=== PATIENT | male | born 1950 | race Caucasian/White ===

== ENCOUNTER → 2017-02-28 | Outpatient (CLI) | payer MEDICARE ==
--- NOTE | 2017-02-28 14:04 | REP ---
Right lower extremity Duplex Doppler venous ultrasound: Real time compression and duplex Doppler interrogation of the right lower extremity deep venous system is performed. The right common femoral, superficial femoral and popliteal veins are fully compressible with transducer pressure and demonstrate normal spontaneous and phasic flow, without evidence of deep venous thrombosis. Impression: No evidence of deep venous thrombosis of the right lower extremity femoral popliteal venous system. There is no definite muscle tear or hematoma in the calf. Signed by Hector Escalante MD 02/28/2017 01:56 P
== END ==
LOC: M RAD 13:08
PROVIDERS: ATTEND Surgery
DX: M79.604 Pain in right leg (principal)

== ENCOUNTER 2019-02-19 15:30 | Emergency (ER) | payer MEDICARE ==
[~2019-02-19] VITALS: Ht 180.3 cm; Wt 99.6 kg
[2019-02-19] MEDS ORDERED: NS 1,000 ML IV SCH (15:49)
[2019-02-19] MEDS ORDERED: NITROGLYCERIN 0.4 MG SUBL TABLET As Ordered ONE (15:50)
[2019-02-19] MEDS ORDERED: NITROGLYCERIN 0.4 MG SUBL TABLET SL PRN (16:00)
[2019-02-19] MEDS ORDERED: ECOT81TA5 PO (16:13)
[2019-02-19] MEDS ORDERED: LISI10TA4 PO (16:13)
[2019-02-19] MEDS ORDERED: OMEP-218 PO (16:13)
[2019-02-19] MEDS ORDERED: MELO7.5T35 PO (16:13)
[2019-02-19] MEDS ORDERED: SITA50TAB PO (16:13)
[2019-02-19] MEDS ORDERED: PRAV10TA3 PO (16:13)
[2019-02-19 16:15] LABS: BASO # 0.2 10^3/uL (0.0-0.2); BASO % 1.2 % (0.0-1.0); EOS # 0.4 10^3/uL (0.0-0.50); EOS % 3.6 % (0.0-3.0); HEMATOCRIT 48.7 % (42.0-52.0); HEMOGLOBIN 16.5 g/dl (13.5-17.5); LYMPH # 2.6 10^3/uL (1.5-4.5); LYMPH % 21.2 % (24.0-44.0); MEAN CORPUSCULAR HEMOGLOBIN 30.2 pg (27.0-33.0); MEAN CORPUSCULAR HGB CONC 33.9 g/dl (32.0-36.5); MEAN CORPUSCULAR VOLUME 89.2 fl (80.0-96.0); MONO % 8.1 % (0.0-5.0); NEUTROPHILS # 7.8 10^3/uL (1.8-7.7); PLATELET COUNT, AUTOMATED 294 10^3/uL (150-450); RED BLOOD COUNT 5.46 10^6/uL (4.30-6.10)
--- NOTE | 2019-02-19 16:17 | REP ---
Chest one-view HISTORY: Chest pain Comparison: 10/25/2010 Patchy density is present in the left lower lobe consistent with atelectasis or infiltrate. The right lung is clear The heart is normal in size. The pulmonary vasculature is normal in appearance. Impression: Left lower lobe atelectasis or infiltrate. Electronically Signed by Navneet Perez MD 02/19/2019 04:09 P
[2019-02-19 16:26] LABS: INR 0.95; PROTHROMBIN TIME 12.8 SECONDS (12.1-14.4)
[2019-02-19 16:27] LABS: PARTIAL THROMBOPLASTIN TIME 29.1 SECONDS (25.4-37.6)
[2019-02-19] MEDS ORDERED: CLOPIDOGREL 300 MG TAB (PLAVIX) PO ONE (16:30)
[2019-02-19 16:36] LABS: ALBUMIN 3.9 GM/DL (3.2-5.2); ALT/SGPT 53 U/L (12-78); BILIRUBIN,DIRECT < 0.1 MG/DL (0.0-0.2); BILIRUBIN,TOTAL 0.4 MG/DL (0.2-1.0); BLOOD UREA NITROGEN 15 MG/DL (7-18); CALCIUM LEVEL 9.2 MG/DL (8.8-10.2); CARBON DIOXIDE LEVEL 26 MEQ/L (21-32); CHLORIDE LEVEL 107 MEQ/L (98-107); CPK CREATINE PHOSPHOKINASE 89 U/L (39-308); CREATININE FOR GFR 0.78 MG/DL (0.70-1.30); FREE T4 1.12 NG/DL (0.76-1.46); GLOMERULAR FILTRATION RATE > 60.0 (>49); GLUCOSE, FASTING 119 MG/DL (70-100); LIPASE 164 U/L (73-393); MB/CK RELATIVE INDEX 1.24 (< OR =4); POTASSIUM SERUM 4.1 MEQ/L (3.5-5.1); SODIUM LEVEL 139 MEQ/L (136-145); TOTAL PROTEIN 7.4 GM/DL (6.4-8.2); TROPONIN I < 0.02 NG/ML (< 0.10)
[2019-02-19 17:15] VITALS: BP 134/74
--- NOTE | 2019-02-20 01:39 | ECGEPIP ---
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
== END 2019-02-19 17:22 | disposition short-term general hospital (02) ==
LOC: M ED 15:30
DX: I25.110 Atherosclerotic heart disease of native coronary artery with unstable angina pectoris (principal); I11.9 Hypertensive heart disease without heart failure; E11.9 Type 2 diabetes mellitus without complications; E78.5 Hyperlipidemia, unspecified; Z95.5 Presence of coronary angioplasty implant and graft; Z79.899 Other long term (current) drug therapy; Z79.82 Long term (current) use of aspirin; Z79.84 Long term (current) use of oral hypoglycemic drugs

== ENCOUNTER 2019-06-13 19:20 | Inpatient (IN) | payer MEDICARE ==
[~2019-06-13] VITALS: Ht 180.3 cm; Wt 95.6 kg
[~2019-06-13 19:20] MED LIST: ECOT81TA5 PO; LISI10TA4 PO; MELO7.5T35 PO; OMEP-218 PO; PRAV10TA3 PO; SITA50TAB PO
[2019-06-13] MEDS ORDERED: CLOP75TA2 PO (19:35)
[2019-06-13 20:25] LABS: BASO # 0.1 10^3/uL (0.0-0.2); EOS # 0.3 10^3/uL (0.0-0.50); EOS % 2.9 % (0.0-3.0); HEMATOCRIT 46.1 % (42.0-52.0); HEMOGLOBIN 15.3 g/dl (13.5-17.5); LYMPH # 1.9 10^3/uL (1.5-4.5); LYMPH % 16.2 % (24.0-44.0); MEAN CORPUSCULAR HEMOGLOBIN 29.9 pg (27.0-33.0); MEAN CORPUSCULAR HGB CONC 33.2 g/dl (32.0-36.5); MONO # 0.8 10^3/uL (0.0-0.8); MONO % 6.5 % (0.0-5.0); NEUTROPHILS # 8.5 10^3/uL (1.8-7.7); NEUTROPHILS % 72.7 % (36.0-66.0); PLATELET COUNT, AUTOMATED 271 10^3/uL (150-450); RED BLOOD COUNT 5.12 10^6/uL (4.30-6.10); WHITE BLOOD COUNT 11.8 10^3/uL (4.0-10.0)
[2019-06-13] MEDS ORDERED: NS 500 ML IV ONE (20:30)
[2019-06-13 20:48] LABS: INR 1.04; PROTHROMBIN TIME 13.3 SECONDS (11.8-14.0)
[2019-06-13 20:51] LABS: ALBUMIN 3.3 GM/DL (3.2-5.2); ALT/SGPT 55 U/L (12-78); BILIRUBIN,DIRECT 0.1 MG/DL (0.0-0.2); BILIRUBIN,TOTAL 0.3 MG/DL (0.2-1.0); BLOOD UREA NITROGEN 14 MG/DL (7-18); CALCIUM LEVEL 8.9 MG/DL (8.8-10.2); CARBON DIOXIDE LEVEL 28 MEQ/L (21-32); CHLORIDE LEVEL 104 MEQ/L (98-107); CK-MB VALUE MASS < 1.0 NG/ML (<3.6); CPK CREATINE PHOSPHOKINASE 62 U/L (39-308); CREATININE FOR GFR 0.89 MG/DL (0.70-1.30); GLOMERULAR FILTRATION RATE > 60.0 (>49); GLUCOSE, FASTING 254 MG/DL (70-100); MB/CK RELATIVE INDEX 1.61 (< OR =4); POTASSIUM SERUM 4.3 MEQ/L (3.5-5.1); SODIUM LEVEL 137 MEQ/L (136-145); TOTAL PROTEIN 6.9 GM/DL (6.4-8.2); TROPONIN I < 0.02 NG/ML (< 0.10)
[2019-06-13] MEDS ORDERED: PRAVASTATIN 20 MG TAB PO SCH (21:00)
[2019-06-13] MEDS ORDERED: ISOVUE-370 76% 100ML VIAL (Q9967) As Ordered ONE (21:23)
--- NOTE | 2019-06-13 21:43 | REPVR ---
EXAM: CT Head Without Contrast EXAM DATE/TIME: 06/13/2019 8:54 PM CLINICAL HISTORY: 69 years old, male; Syncope and collapse; Additional info: Near-syncope TECHNIQUE: Imaging protocol: Computed tomography images of the head without contrast. Radiation optimization: All CT scans at this facility use at least one of these dose optimization techniques: automated exposure control; mA and/or kV adjustment per patient size (includes targeted exams where dose is matched to clinical indication); or iterative reconstruction. COMPARISON: No relevant prior studies available. FINDINGS: Brain: The white-rocha differentiation is preserved demonstrating no acute territorial type infarct. Mild increased fluid is identified in the left cerebellar convexity. Artifact limits evaluation of the cassius. There is mild prominence of the sulci, compatible with atrophy. No acute intracranial hemorrhage is seen. No intracranial mass effect. Midline shift: There is no midline shift. Ventricles: No ventriculomegaly. Bones/joints: The calvarium demonstrates no evidence for a depressed fracture. Sinuses: Mild mucosal thickening of a few ethmoid air cells. Mastoid air cells: No mastoid effusion. Soft tissues: Unremarkable. Vasculature: Intracranial atherosclerosis visualized. IMPRESSION: 1. No acute intracranial hemorrhage or acute territorial type infarct. 2. Mild atrophy. 3. Additional findings described above. Electronically signed by: Adria Palmer On 06/13/2019 21:42:55 PM
--- NOTE | 2019-06-13 21:44 | REP ---
Portable chest x-ray: Two views. History: Near-syncope. Comparison study February 19, 2019. Findings: Right hemidiaphragm is somewhat elevated. There is coarse bilateral lower lobe linear scarring. This is essentially unchanged from the January 2019 study. No infiltrate is seen. Pleural angles are sharp. Heart is not enlarged. There are clips in the right upper quadrant. Impression: Bilateral lower lobe linear fibrosis. Otherwise no acute disease. Electronically Signed by Sami Mckoy MD 06/14/2019 10:40 A
--- NOTE | 2019-06-13 22:30 | REPVR ---
EXAM: CT Angiography Chest With Contrast EXAM DATE/TIME: 06/13/2019 9:42 PM CLINICAL HISTORY: 69 years old, male; Chest pain; Additional info: Bradycardic/hypotensive R/O taa, pericardial effusion TECHNIQUE: Imaging protocol: Axial computed tomographic angiography images of the chest with intravenous contrast using CT angiography protocol. Coronal and sagittal reformatted images were created and reviewed. 3D rendering: MIP reconstructed images were created and reviewed. Radiation optimization: All CT scans at this facility use at least one of these dose optimization techniques: automated exposure control; mA and/or kV adjustment per patient size (includes targeted exams where dose is matched to clinical indication); or iterative reconstruction. Contrast material: ISOVUE 370;Contrast volume: 75 ml;Contrast route: IV; COMPARISON: CR Chest, 1 view 06/13/2019 8:20 PM FINDINGS: Pulmonary arteries: The main pulmonary trunk, right/left main pulmonary arteries, and the proximal lobar branches demonstrate no definite intraluminal filling defect to suggest pulmonary embolism. Aorta: Mild atherosclerosis of the thoracic aorta. No aneurysm or dissection of the thoracic aorta. Thyroid: There is a 1.6 cm hypodense nodule within the left thyroid lobe. Lungs: Mild paraseptal emphysematous changes are identified in the right upper lobe of the lung. A band of consolidation is visualized within the right lower lobe, likely representing atelectatic change although pneumonia cannot be excluded. Additional atelectatic changes are identified within the left lower lobe, lingula, and right middle lobe. Nonspecific ground-glass density within the dependent lower lobes bilaterally, as well as the left upper lobe. No lung mass or dominant lung nodule. Pleural space: No pneumothorax. No pleural effusion. Heart: Small amount of fluid in the superior pericardial recess. No cardiomegaly. Mediastinum: Small hiatal hernia. Diaphragm: Elevation of the right hemidiaphragm. Liver: There is hypodense fatty infiltration of the liver. Gallbladder and bile ducts: Surgical clips are identified within the gallbladder fossa, compatible with cholecystectomy. Adrenals: There is nodular thickening of the bilateral adrenal glands. This is nonspecific. Lymph nodes: There is a mildly enlarged right hilar lymph node measuring 1.4 x 0.9 cm. Additional small hilar lymph nodes are identified bilaterally. No significant mediastinal lymphadenopathy. Nonspecific axillary lymph nodes are identified with prominent fatty yanira. Bones/joints: Hypertrophic degenerative changes are noted within the spine. There is mild anterior wedging of the T6 and T7 vertebral bodies, with a mild decrease in vertebral height of T9. These findings are consistent with compression deformities/fractures, but indeterminate in acuity. Soft tissues: Unremarkable. IMPRESSION: 1. No aneurysm or dissection of the thoracic aorta. 2. No acute pulmonary embolism. 3. Elevation of the right hemidiaphragm. 4. Mild paraseptal emphysematous changes are identified in the right upper lobe of the lung. 5. A band of consolidation is visualized within the right lower lobe, likely representing atelectatic change although pneumonia cannot be excluded. Additional atelectatic changes are identified. 6. There is a mildly enlarged right hilar lymph node. 7. There is a 1.6 cm hypodense nodule within the left thyroid lobe. Follow-up ultrasonography recommended. 8. There is nodular thickening of the bilateral adrenal glands. This is nonspecific. 9. There is hypodense fatty infiltration of the liver. 10. There is mild anterior wedging of the T6 and T7 vertebral bodies, with a mild decrease in vertebral height of T9. These findings are consistent with compression deformities/fractures, but indeterminate in acuity. Clinical correlation and correlation with prior studies recommended. 11. Additional findings described above. COMMENT: In patients aged 35 years and older with an incidental thyroid nodule equal to or greater than 1.[address], MRI or extrathyroidal US, further evaluation with dedicated thyroid US is recommended for patients with normal life expectancy and without comorbidities. For smaller nodules without suspicious features, no further evaluation or follow up is recommended. Electronically signed by: Adria Palmer On 06/13/2019 22:30:05 PM
--- NOTE | 2019-06-13 23:13 | HPEPDOC ---
[facility] Medical History & Physical Date of Admission Jun 13, 2019 Date of Service: Jun 13, 2019 Primary Care Physician: A Other Provider PCP Mariah Patel Attending Physician: RADHA JUNG MD History and Physical Time of service 11:50 PM CHIEF COMPLAINT: Weakness HISTORY OF PRESENT ILLNESS: Mr. Mae is a 69-year-old male who presented with complaints of "feeling tired for 2 days Like I was drunk Dizzy Couldn't focus". Today, while he was sitting on the porch eating lunch, he spontaneously fell asleep. He decided to go inside and have a nap, but when he woke up he was having palpitations therefore he decided to come to the hospital. Associated symptoms include dry cough, upper patient's, headaches, dyspnea with exertion, and dyspnea at rest. He denies falling, denies having chest pain, denies having leg swelling, denies having dyspnea while lying down flat. REVIEW OF SYSTEMS: 12 point review of systems negative except as listed in HPI PAST MEDICAL / SURGICAL HISTORY: 1. Wpf-hdbvycr-sbvkgealq DM 2. Chronic CAD s/p stents X3 / Dyslipidemia 3. Chronic HTN 5. Depression 6. Right hip OAs/p hip surgery 7. GERD / Flores's 8. Possible history of prostate cancer (status post prostatectomy, the pathology results were negative, but he was recently told that he had a reoccurrence. He is scheduled follow up with a specialist in [facility]) 11. Hearing loss (has bilateral hearing aids) 9. s/p rotator cuff surgery SOCIAL HISTORY: Denies smoking. Denies alcohol use. Denies illicit drug use FAMILY HISTORY: Father had Kdfkt-Ycgjbjzip-Kfsmt syndrome. Osteoarthritis ALLERGIES: Please see below. HOME MEDICATIONS: Please see below. PHYSICAL EXAMINATION: VITAL SIGNS: Temperature 97.8, pulse 39-64, respiratory rate 16, blood pressure 118/61, pulse oximetry 94% on room air GENERAL APPEARANCE: Well-nourished, well-developed, does not appear in apparent distress, doesn't appear toxic. INTEGUMENT: Doesn't appear ashen, does not appear flushed HEENT: Cephalic, atraumatic, mucous murmurs moist and pink CARDIOVASCULAR: Heart rate regularly irregular and bradycardic. No murmurs, rubs or gallops. Radial pulses are palpable. There is no lotion edema LUNGS: Clear to addition bilaterally on room air ABDOMEN: Bowel sounds are hypoactive. The abdomen is soft and nontender on palpation MUSCULOSKELETAL: Range of motion is intact in all 4 extremities NEUROLOGICAL: Cranial nerves II-12 are grossly intact. Speech is not dysarthric PSYCHIATRIC: Alert and oriented, able to understand and follow commands LABORATORY DATA: CBC is remarkable for WBC count 11.8 Coags are unremarkable Chemistry is remarkable for glucose of 254 IMAGING: Chest x-rays are unremarkable CT of the head is unremarkable for any acute process, but show some atrophy. CTA of the chest is negative for dissection, negative for PE, but does show emphysematous changes of the right upper lobe, consolidation at the right lower lobe that may be developed atelectasis or pneumonia, and a left thyroid nodule. MICROBIOLOGY: Please see below. Mr. Marks is a 63-year-old male with a past medical history of hypertension, hnx-uferekb-xaccfwiuv diabetes, chronic CAD, osteoarthritis, GERD, and depression who will be admitted primarily for evaluation of bradycardia. ASSESSMENT: PLAN: 1. Symptomatic Bradycardia Differential includes 2/2 plavix versus ACS versus infection TSH and K wnl CTA neg for PE Plan: admit to ICU / pacers at bedside/ atropine PRN for HR sustained <30 for 2 min w AMS / f/u Mag / trend troponins / f/u serial EKGs / f/u Echo / hold plavix pending cardiology consult with 2. Leucocytosis Plan: f/u UA, blood cx and lactic acid / emperic levofloxacin 3. Thyroid Nodule TSH within normal limits Plan: f/u US the thyroid 4.Umt-rbbzdqw-bvjryohib diabetes mellitus Plan: Hold oral anti-glycemic agents/f/u accuchecks & A1C / SSI w hypoglycemia protocol 5. Chronic CAD s/p stents X3 / Dyslipidemia Plan: Continue with home meds except Plavix 6. Chronic HTN Plan: Continue with home meds 7. Depression Plan: Continue with home meds 8. Right hip OAs/p hip surgery Plan: Continue with home meds 9. 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 Disposition pending clinical course Laboratory Data CBC/BMP Laboratory Tests 06/13/19 20:07 Red Blood Count 5.12, Mean Corpuscular Volume 90.0, Mean Corpuscular Hemoglobin 29.9, Mean Corpuscular Hemoglobin Concent 33.2, Red Cell Distribution Width 12.6, Neutrophils (%) (Auto) 72.7 H, Lymphocytes (%) (Auto) 16.2 L, Monocytes (%) (Auto) 6.5 H, Eosinophils (%) (Auto) 2.9, Basophils (%) (Auto) 1.0, Neut rophils # (Auto) 8.5 H, Lymphocytes # (Auto) 1.9, Monocytes # (Auto) 0.8, Eosinophils # (Auto) 0.3, Basophils # (Auto) 0.1 Home Medications Scheduled Aspirin (Aspirin EC) 81 Mg Tablet.dr, 81 MG PO DAILY Clopidogrel Bisulfate (Plavix) 75 Mg Tablet, 75 MG PO DAILY Lisinopril (Lisinopril) 10 Mg Tablet, 10 MG PO DAILY Omeprazole (Omeprazole) 20 Mg Capsule.dr, 20 MG PO Q2D Pravastatin Sodium (Pravastatin Sodium) 40 Mg Tablet, 40 MG PO QHS Sitagliptin (Januvia) 50 Mg Tablet, 50 MG PO QHS Scheduled PRN Acetaminophen (Tylenol Arthritis) 650 Mg Tablet.er, 650 MG PO Q8H PRN for PAIN Acetaminophen with Codeine (Tylenol with Codeine #3 Tablet) 1 Each Tablet, 1 TAB PO Q4-6HP PRN for severe arthritis pain Diclofenac Sodium (Voltaren) 100 Gm Gel..gram., 1 DOSE TOP Q8H PRN for PAIN USES ON RIGHT SHOULDER Meloxicam (Mobic) 7.5 Mg Tablet, 7.5 MG PO BID PRN for PAIN WITH FOOD Nitroglycerin (Nitrostat) 0.4 Mg Tab.subl, 0.4 MG SL NITRO PRN for CHEST PAIN Nystatin (Nystatin Powder) 15 Gm Powder, 1 DOSE TOP BID PRN for ITCHING ON RIGHT FOOT FOR ATHLETE'S FOOT Allergies Coded Allergies: No Known Allergies (Verified Allergy, Unknown, 02/19/19) A-FIB/CHADSVASC A-FIB History Current/History of A-Fib/PAF?: No Current PO Anticoag Therapy: No RADHA JUNG MD Jun 13, 2019 23:13
[2019-06-13] MEDS ORDERED: VOLT1GEL15 TOP (23:18)
[2019-06-13] MEDS ORDERED: ASPI-161 PO (23:18)
[2019-06-13] MEDS ORDERED: NITR4TASL SL (23:18)
[2019-06-13] MEDS ORDERED: PRAV40TA2 PO (23:18)
[2019-06-13] MEDS ORDERED: TYLE650T35 PO (23:18)
[2019-06-13] MEDS ORDERED: PLAV1TAB2 PO (23:18)
[2019-06-13] MEDS ORDERED: NYST1POW9 TOP (23:18)
[2019-06-13] MEDS ORDERED: RA T500C2 PO (23:18)
[2019-06-13] MEDS ORDERED: MOBI4TAB PO (23:18)
[2019-06-13] MEDS ORDERED: ATROPINE SULF 0.4 MG/ML 1ML VIAL (J0461) IV PRN (23:30)
[2019-06-13 23:52] LABS: MAGNESIUM LEVEL 2.1 MG/DL (1.8-2.4)
[2019-06-14] VITALS (8 sets, daily range): BP systolic 103–160; BP diastolic 55–88
[2019-06-14] MEDS ORDERED: NS 1,000 ML IV SCH (01:15)
[2019-06-14] MEDS ORDERED: ACETAMINOPHEN 650MG ER TAB (TYLENOL ARTHRITIS) PO PRN (01:15)
[2019-06-14] MEDS ORDERED: MELOXICAM (MOBIC) 7.5 MG TAB PO PRN (01:15)
[2019-06-14] MEDS ORDERED: NITROGLYCERIN 0.4 MG SUBL TABLET SL PRN (01:15)
[2019-06-14] MEDS ORDERED: NYSTATIN 100,000 UNITS/GM TOPICAL PWD 15 GM TOP PRN (01:15)
[2019-06-14] MEDS: LIDOCAINE 5% OINT 30 GM TOP SCH ×2 (01:45→09:59)
[2019-06-14] MEDS ORDERED: LevoFLOXacin IV 750 MG in IV 1 EA IV SCH (02:00)
[2019-06-14] MEDS ORDERED: ASPIRIN 81 MG CHEW TABLET PO SCH (09:00)
[2019-06-14] MEDS ORDERED: PANTOPRAZOLE 40MG TAB (PROTONIX) PO SCH (09:00)
[2019-06-14] MEDS ORDERED: CLOPIDOGREL 75 MG TAB PO SCH (09:00)
[2019-06-14] MEDS ORDERED: lisinopriL 10 MG TAB PO SCH (09:00)
[2019-06-14 09:29] LABS: BASO # 0.1 10^3/uL (0.0-0.2); EOS # 0.2 10^3/uL (0.0-0.50); EOS % 1.9 % (0.0-3.0); HEMATOCRIT 45.8 % (42.0-52.0); HEMOGLOBIN 15.5 g/dl (13.5-17.5); LYMPH # 1.6 10^3/uL (1.5-4.5); LYMPH % 16.1 % (24.0-44.0); MEAN CORPUSCULAR HEMOGLOBIN 29.8 pg (27.0-33.0); MEAN CORPUSCULAR HGB CONC 33.8 g/dl (32.0-36.5); MEAN CORPUSCULAR VOLUME 88.1 fl (80.0-96.0); MONO # 0.6 10^3/uL (0.0-0.8); MONO % 5.9 % (0.0-5.0); NEUTROPHILS # 7.4 10^3/uL (1.8-7.7); NEUTROPHILS % 74.2 % (36.0-66.0); PLATELET COUNT, AUTOMATED 261 10^3/uL (150-450)
[2019-06-14 10:13] LABS: BLOOD UREA NITROGEN 10 MG/DL (7-18); CARBON DIOXIDE LEVEL 29 MEQ/L (21-32); CHLORIDE LEVEL 108 MEQ/L (98-107); CREATININE FOR GFR 0.84 MG/DL (0.70-1.30); GLOMERULAR FILTRATION RATE > 60.0 (>49); GLUCOSE, FASTING 134 MG/DL (70-100); POTASSIUM SERUM 4.1 MEQ/L (3.5-5.1); SODIUM LEVEL 142 MEQ/L (136-145); TROPONIN I < 0.02 NG/ML (< 0.10)
--- NOTE | 2019-06-14 10:43 | CR ---
CARDIOLOGY PACEMAKER SERVICE CONSULT DATE OF CONSULTATION: 06/14/2019 REFERRING PHYSICIAN: Dr. Lara Rincon INDICATION: Profound weakness with marked sinus bradycardia. 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 On a day-by-day basis he does feel restricted by his discomfort, walking perhaps one-half to one block at his own pace, will climb a flight of stairs slowly, limited by pain and shortness of breath. Has been followed by Dr. Melissa for ischemic and hypertensive heart disease with history of five prior stent placements, last was January 2019. Unaware of an abnormal EKG or documented rhythm problem. Yesterday afternoon after working in the cellar earlier that morning, he was sitting out on the deck and felt profound fatigue and dizziness requiring he lie down. This persisted, but then he awoke with forceful palpitations. He got dressed and drove himself to the [place] emergency room, but claims that he did not see a medical provider despite his reporting cardiac history. He then drove himself to [facility] ER arriving at 7:20 p.m. Initial vital signs showed a pulse rate of 51 beats per minute, blood pressure 101/65, respiratory rate 18, O2 saturation 94% on room air. He was afebrile. He was reported feeling a vague headache and some nausea. Recorded heart rates while he was in the emergency room dropped as low as 39 beats per minute associated with a soft blood pressure of 95/50. He was given IV fluids and admitted to the intensive care unit for close observation. In light of his bradycardia and relative hypotension, a cardiology pacemaker service consult was placed. Overnight, he has felt well with heart rates in the 40s, but no lower. He has remained asymptomatic. Claims to have had a bout of palpitations similar to yesterday afternoon, earlier this morning, but his monitor showed only sinus rhythm/sinus bradycardia in the low 40s. No tachyarrhythmia was observed. OTHER CARDINAL CARDIAC SYMPTOMS: Has been free of any anginal chest discomfort since last January, his last stenting procedure. As mentioned, he is unaware of an abnormal EKG. Documented symptomatic coronary disease dating back to 2001. Describes a prior 24-year history of up to one pack per day smoking, but stopped some 30-40 years ago. Has no current cough, hemoptysis or history of prior pneumonia. Does admit to gradually worsening effort dyspnea. He has also had a history of obstructive sleep apnea since 2016 and claims to have been compliant with his CPAP therapy. Unaware of rheumatic fever or heart murmur. Treated hypertension for at least the past several years. Claims to have cardiomegaly. Mild weight problem (weighed 175 pounds at age 19, max weight 225 pounds several years ago). Fears he has been gaining weight the past year. As mentioned, has had intermittent fleeting random chest flutters but no previously documented rhythm disturbance. No family history of premature sudden cardiac . His father did have Boxcs-Lexejefph-Qcgdz as well as coronary artery disease and pacemaker. in his late 60s. No excessive caffeine ingestion and only rare alcohol use. No history of thyroid dysfunction and does not use wkde-iwu-wrmjtqn decongestants, pep pills, diet pills. His only prior fall was related to tripping and loss of consciousness related to blunt head trauma. Customarily does not feel lightheaded or dizzy. Denies any lateralizing neurological deficits, flank pain. No blue toe syndrome. Denies claudication or varicose veins, but since his prior hip surgeries his ankles do swell. CORONARY RISK FACTORS: Male gender. Age. Hypertension. Non-insulin dependent diabetes mellitus. Hyperlipidemia. No history of symptomatic carotid vascular disease. No family history of premature coronary heart disease. OTHER PAST MEDICAL/SURGICAL HISTORY: Complicated degenerative joint disease with repeated hip surgeries. Also status post left rotator cuff repair with ongoing problems with his left shoulder. Gastroesophageal reflux disease/Flores's esophagus. Prostate cancer post prostatectomy with apparent recurrence. Degenerative hearing loss, wearing bilateral hearing aids. Prior history of depression. REVIEW OF SYSTEMS Denies any recent fever, chills or weight loss. No night sweats. Prior history of tick exposure but no recent problem or rash. Wears corrective lenses. Reports having felt some queasiness with extreme hot, humid temperatures the past few days. No vomiting, abdominal pain or GI or diarrhea. No GI bleeding. Nocturia 3-4 times nightly related to his prostate problems. Multi joint arthralgia that may often interrupt his sleep. Restless legs. Obstructive sleep apnea, compliant with his CPAP therapy. All other systems review is negative. MEDICATIONS: At home he takes: - lisinopril 10 mg daily - pravastatin 40 mg daily - aspirin 81 mg daily - Plavix 75 mg daily - nitroglycerin 0.4 mg of every 5 minutes p.r.n. chest pain - Mobic 7.5 mg b.i.d. - Voltaren topical ointment right shoulder every 8 hours - omeprazole 20 mg every other day - Januvia 50 mg p.o. q.h.s. - tumeric root extract 1 gram b.i.d. - Tylenol 650 mg p.o. q. 8 hours - nystatin powder b.i.d. right foot ALLERGIES: None known. PHYSICAL EXAMINATION: CONSTITUTIONAL: Pleasant, late middle-aged male lay reasonably comfortable flat in the bed, well tanned. VITAL SIGNS: Heart rate 52 beats per minute with blood pressure 150/70 supine; 68 beats per minute with blood pressure 170/75 sitting with legs dependent; 78 beats per minute, heart rate 78 beats per minute with blood pressure 168/76 standing (asymptomatic), respiratory rate 16, O2 saturation 96%. Afebrile. Weight 211 pounds, height 71 inches, BMI 29.4 EYES: Normal conjunctiva and lids. Early senile arcus. No xanthelasma. ENT/MOUTH: Few missing teeth and fillings. Normal oral moisture. No central cyanosis. NECK: Trachea midline. Thyroid not enlarged. Jugular veins were 2 cm above the sternal angle. RESPIRATORY: Slightly increased anteroposterior chest diameter with fair chest expansion. Good air entry over both lung hinton with no abnormal pulmonary adventitious sounds. CARDIOVASCULAR: Apical impulse at the midclavicular line fifth costal space. Heart sounds somewhat distant. No audible gallop or murmur. Normal carotid upstrokes and volume with no bruits. Upper extremity and femoral pulses were symmetrical and normal. Abdominal aorta was not palpable. No bruits. Pedal pulses were symmetrical and normal. No varicose veins or dependent edema. EXTREMITIES: No clubbing, peripheral cyanosis or splinter hemorrhages. GI: Soft, nontender abdomen with no hepatosplenomegaly. Normal bowel sounds. Rectal examination not indicated. MUSCULOSKELETAL: No obvious joint deformities but obvious discomfort with shoulder movement and certain hip positions. Gait was not assessed at this time. Muscular strength and tone appeared to be normal. Normal spine curvature. NEURO/PSYCH: Bright, alert and orientated, gave a lucid history. Eye, facial, extremity movements were symmetrical and normal. No abnormal movements. Affect was normal. SKIN: No rashes, ecchymotic lesions pallor or icterus. INVESTIGATIONS: Portable upright chest x-ray reviewed independently showed normal appearing heart size for this technique. Slightly unfolded thoracic aorta but normal pulmonary vasculature. Slightly raised right hemidiaphragm. Few bilateral linear scars, but no acute infiltrate or mass. No pleural effusions. EKG tracing February 19, 2019 showed sinus rhythm at 64 bpm with left atrial conduction disturbance. Subtle incomplete right bundle branch block with marginal inferior ST/T-wave abnormalities. Tracing February 11, 2019 at 07:30 p.m. showed sinus bradycardia 49 bpm, but it was not changed from the prior study. Chest CT angiography performed last evening was reviewed independently and shows a normal thoracic aorta. His pulmonary trunk was upper limits of normal at 2.5 cm. Left atrium may have been slightly dilated, right ventricle was normal in size with normal LV wall thickness. Right heart chambers perhaps upper limits of normal with IVC size 2.2 cm. No pericardial effusion. Some irregularity of his proximal left anterior descending coronary artery. No evidence of pulmonary embolism. 1.6 cm hypodense nodule left lobe of the thyroid. Mild emphysematous changes and band of consolidation right lower lobe, likely scar. No pleural effusion. Small hiatal hernia. Fatty infiltration of the liver. Surgical clips consistent with prior cholecystectomy. Slight nodular thickening of the adrenal glands nonspecific. Mildly enlarged right hilar lymph node with similar lymphadenopathy bilaterally. No significant adenopathy. Hypertrophic degenerative changes of the spine with mild wedging of T6 and T7. BLOOD WORK: Hemoglobin was 15.3 with slight leukocytosis yesterday. Normal platelet count. Normal PT/INR. Normal electrolytes with potassium 4.3, calcium 8.9, BUN 14, creatinine 0.89, random glucose 254. Lactic acid level was normal. Liver function studies were normal. CPK and troponin I levels were negative serially. TSH was normal at 1.3, albumin 3.3. Urinalysis showed 3+ proteinuria, but was otherwise negative. IMPRESSION/PLAN: 1. Marked sinus bradycardia: From his history I believe this may well have been triggered by heat fatigue and nausea. No recurrent problem following IV fluid administration. Appropriate heart rate and blood pressure changes with orthostatic testing today. He may have an element of sinus node dysfunction, but no clear symptomatic bradycardia in the past. No clear indication for permanent dual-chamber pacemaker implant today. 2. Abnormal EKG: A reflection of his body habitus and prior smoking history as well as hypertension. No change from last tracing January 2019. 3. Coronary artery disease (ely shoshone vessel)/post multivessel PTCA: Fortunately since his last intervention in January, has been free of symptomatic myocardial ischemia. Chief limitation is orthopedic. Obviously not on beta-arsh because of degree of sinus node dysfunction, put on protective lisinopril, pravastatin, aspirin and Plavix with sublingual nitroglycerin for p.r.n. use. 4. Hypertensive heart disease (benign without heart failure): Has effort dyspnea, but this is primarily related to his pulmonary disease and weight gain. No other symptoms or signs of congestion. Current blood pressure is somewhat elevated related to our discussion with serial blood pressure readings here in the hospital have been controlled on lisinopril alone. Likely does have an element of LV diastolic dysfunction associated with his slightly dilated left atrium. Chemistry confirms electrolyte balance with normal renal function. No medication change would be deemed necessary. 5. Obstructive sleep apnea: Usually quite compliant with his CPAP therapy at home, but here he has not had his CPAP machine, so the observed nocturnal bradycardia is of course not unexpected. His reported palpitations this morning interestingly did not correlate with any tachyarrhythmia. I have requested that he be given his customary low fat, low cholesterol, modest salt and carbohydrate restricted diet and be allowed to ambulate. Should he have no further problems I believe he could be discharged home with followup with his customary chopper feeder, Dr. Melissa. Thank you for allowing me to participate in the care of this patient. We would be pleased to reassess him at any time. cc: Ashvin Melissa MD
--- NOTE | 2019-06-14 11:35 | IPNPDOC ---
Text Note Date of Service The patient was seen on 06/14/19. NOTE S: patient states no dizziness, no CP, no SOB. no palpitations. He was seen by Dr Perez, cardiology this AM O: Vitals as below General: pleasant, NAD AAOx3 Heart - gino 55-65 bpm LCTA no W/R/R Ext no edema CTA negative for PE A/P: 1. Symptomatic Bradycardia - RESOLVED - currently asymptomatic. Suspected etiology included ARABELLA (not using cpap for few days), plavix and tumeric root Per Dr Perez- patient can be discharged this afternoon if asymptomatic and ambulatory with follow up with Dr Melissa. Downgrade from icu to PCU Will restart plavix due to underlying CAD/stents 2. Possible Sepsis due to pneumonia - DOUBT SIRS criteria include leucocytosis and bradycardia Respiratory tract symptoms include cough and dyspnea CT of the chest showed consolidation at the right lower lobe Qsofa score equals 0 equals not high risk CURB-65 Score = 1 point = low risk D/C levaquin. DC IVF. suspect radiograph finding more atelectasis than infiltrate 3. Thyroid Nodule TSH within normal limits Plan: f/u US the thyroid and follow up with PCP 4.Ijr-itwswvr-olbwgsong diabetes mellitus Plan: Hold oral anti-glycemic agents/f/u accuchecks & A1C / SSI w hypoglycemia protocol 5. Chronic CAD s/p stents X3 / Dyslipidemia Plan: Continue with home meds except Plavix 6. Chronic HTN Plan: Continue with home meds 7. Depression Plan: Continue with home meds 8. Right hip OAs/p hip surgery Plan: Continue with home meds except d/c tumeric root. discussed with patient continue with nsaids as previous prescribed and considering CBD oil trial. 9. GERD / Flores's Plan: Continue with home meds 10.Obesity BMI 30 Plan: can f/u w PCP for investigator utility bill complaints consult / recommend cardiovascular exercise for 40 min 4-5 days a week DVT prophylaxis with SCDs. VS,Fishbone, I+O VS, Fishbone, I+O Laboratory Tests 06/13/19 20:07 Red Blood Count 5.12, Mean Corpuscular Volume 90.0, Mean Corpuscular Hemoglobin 29.9, Mean Corpuscular Hemoglobin Concent 33.2, Red Cell Distribution Width 12.6, Neutrophils (%) (Auto) 72.7 H, Lymphocytes (%) (Auto) 16.2 L, Monocytes (%) (Auto) 6.5 H, Eosinophils (%) (Auto) 2.9, Basophils (%) (Auto) 1.0, Neut rophils # (Auto) 8.5 H, Lymphocytes # (Auto) 1.9, Monocytes # (Auto) 0.8, Eosinophils # (Auto) 0.3, Basophils # (Auto) 0.1 06/14/19 09:08 Red Blood Count 5.20, Mean Corpuscular Volume 88.1, Mean Corpuscular Hemoglobin 29.8, Mean Corpuscular Hemoglobin Concent 33.8, Red Cell Distribution Width 12.6, Neutrophils (%) (Auto) 74.2 H, Lymphocytes (%) (Auto) 16.1 L, Monocytes (%) (Auto) 5.9 H, Eosinophils (%) (Auto) 1.9, Basophils (%) (Auto) 1.0, Neutrophils # (Auto) 7.4, Lymphocytes # (Auto) 1.6, Monocytes # (Auto) 0.6, Eosinophils # (Auto) 0.2, Basophils # (Auto) 0.1, Calcium Level 9.0 Vital Signs Date Time Temp Pulse Resp B/P (MAP) Pulse Ox O2 Delivery O2 Flow Rate FiO2 06/14/19 09:59 160/88 06/14/19 04:00 97.5 45 18 96 06/13/19 20:12 Room Air I&O- Last 24 Hours up to 6 AM 06/14/19 06:00 Intake Total 1020 ml Output Total 0 ml Balance 1020 ml DEDE DIGGS DO Jun 14, 2019 11:35
[2019-06-14] MEDS ORDERED: TYLETAB14 PO (16:47)
--- NOTE | 2019-06-14 17:11 | DS.PDOC ---
Discharge Summary General Date of Admission Jun 13, 2019 at 23:19 Date of Discharge 06/14/19 Primary Care Physician: Christ Armstrong Attending Physician: DEDE DIGGS DO Specialist/Consultants Involve: Durga Perez Discharge Summary PROCEDURES PERFORMED DURING STAY: none DISCHARGE DIAGNOSES: 1. Symptomatic Bradycardia - 2. Possible Sepsis due to pneumonia - DOUBT 3. Thyroid Nodule 4.Jez-afdielf-gmtvygocw diabetes mellitus 5. Chronic CAD s/p stents X3 with Dyslipidemia 6. Chronic HTN 7. Depression 8. Right hip OA - s/p hip surgery 9 ARABELLA COMPLICATIONS/CHIEF COMPLAINT: Symptomatic Bradycardia. HISTORY OF PRESENT ILLNESS: 69 yo male admitted with palpitations and found to be in severe bradycardia in ED - see H&P for detail. HOSPITAL COURSE: patient admitted and monitored, HR ranged between 45-80 (rest and ambulating) he remained asymptomatic with no further palpitations. Cardiology consulted and recommended no need for pacer and suggested further outpatient follow up with his partition setter. Patient was instructed to stop tumeric as this may enhance plavix and further contribute to bradycardia and bleeding. HE had a CTA chest which was negative for PE but did show a thyroid nodule that will need further outpatient evaluation. An thyroid US performed and is pending. DISCHARGE MEDICATIONS: Please see below. ALLERGIES: Please see below. PHYSICAL EXAMINATION ON DISCHARGE: VITAL SIGNS: Please see below. General: pleasant, NAD AAOx3 Heart - gino 55-65 bpm LCTA no W/R/R Ext no edema LABORATORY DATA: Please see below. IMAGING: echo and thyroid US pending; CTA chest negative for PE PROGNOSIS:good ACTIVITY:as tolerated DIET: cardiac/regular DISCHARGE PLAN: home DISCHARGE INSTRUCTIONS: Follow up with dr Melissa in 1 week Follow up with PCP on tuesday as previously scheduled 06/[address] Montague about the thryroid ultrasound Stop / taper off tumeric, consider CBD oil Continue plavix Use mobic with food - sparingly for arthritis as this may cause stomach bleeding. Use tylenol with codeine if arthritis pain worsens. do not use this medication and drive as it may cause sleepiness If pulse is under 45 or palpitations return, call cardiology or go to ED ITEMS TO FOLLOWUP ON ON OUTPATIENT: 1. thyroid ultrasound 2. cardiac echo DISCHARGE CONDITION: stable TIME SPENT ON DISCHARGE: 30 minutes Vital Signs/I&Os Vital Signs Date Time Temp Pulse Resp B/P (MAP) Pulse Ox O2 Delivery O2 Flow Rate FiO2 06/14/19 12:00 98.8 73 18 137/71 (93) 97 06/13/19 20:12 Room Air I&O- Last 24 Hours up to 6 AM 06/14/19 06:00 Intake Total 1020 ml Output Total 0 ml Balance 1020 ml Laboratory Data Labs 24H Laboratory Tests 2 06/13/19 20:07: Immature Granulocyte % (Auto) 0.7, White Blood Count 11.8H, Red Blood Count 5.12, Hemoglobin 15.3, Hematocrit 46.1, Mean Corpuscular Volume 90.0, Mean Corpuscular Hemoglobin 29.9, Mean Corpuscular Hemoglobin Concent 33.2, Red Cell Distribution Width 12.6, Platelet Count 271, Neutrophils (%) (Auto) 72.7H, Lymphocytes (%) (Auto) 16.2L, Monocytes (%) (Auto) 6.5H, Eosinophils (%) (Auto) 2.9, Basophils (%) (Auto) 1.0, Neutrophils # (Auto) 8.5H, Lymphocytes # (Auto) 1.9, Monocytes # (Auto) 0.8, Eosinophils # (Auto) 0.3, Basophils # (Auto) 0.1, Nucleated Red Blood Cells % (auto) 0.0, Prothrombin Time 13.3, Prothromb Time International Ratio 1.04, Activated Partial Thromboplast Time 29.0, Anion Gap 5L, Glomerular Filtration Rate > 60.0, Calcium Level 8.9, Magnesium Level 2.1, Aspartate Amino Transf (AST/SGOT) 28, Alanine Aminotransferase (ALT/SGPT) 55, Alkaline Phosphatase 72, Total Bilirubin 0.3, Direct Bilirubin 0.1, Total Creatine Kinase 62, Creatine Kinase MB < 1.0, Creatine Kinase MB Relative Index 1.61, Troponin I < 0.02, Total Protein 6.9, Albumin 3.3, Albumin/Globulin Ratio 0.92L, Thyroid Stimulating Hormone (TSH) 1.310 06/13/19 23:37: Urine Color YELLOW, Urine Appearance CLEAR, Urine pH 5.0, Urine Specific Zephyr 1.008, Urine Protein NEGATIVE, Urine Glucose (UA) 3+H, Urine Ketones NEGATIVE, Urine Blood NEGATIVE, Urine Nitrite NEGATIVE, Urine Bilirubin NEGATIVE, Urine Urobilinogen 0.2, Urine Leukocyte Esterase NEGATIVE, Urine WBC (Auto) 1, Urine RBC (Auto) 2, Urine Hyaline Casts (Auto) 0, Urine Bacteria (Auto) NEGATIVE, Urine Squamous Epithelial Cells 0, Urine Sperm (Auto) 06/13/19 23:52: Lactic Acid Level 1.1 06/14/19 03:03: Troponin I < 0.02 06/14/19 09:08: Immature Granulocyte % (Auto) 0.9, White Blood Count 10.0, Red Blood Count 5.20, Hemoglobin 15.5, Hematocrit 45.8, Mean Corpuscular Volume 88.1, Mean Corpuscular Hemoglobin 29.8, Mean Corpuscular Hemoglobin Concent 33.8, Red Cell Distribution Width 12.6, Platelet Count 261, Neutrophils (%) (Auto) 74.2H, Lymphocytes (%) (Auto) 16.1L, Monocytes (%) (Auto) 5.9H, Eosinophils (%) (Auto) 1.9, Basophils (%) (Auto) 1.0, Neutrophils # (Auto) 7.4, Lymphocytes # (Auto) 1.6, Monocytes # (Auto) 0.6, Eosinophils # (Auto) 0.2, Basophils # (Auto) 0.1, Nucleated Red Blood Cells % (auto) 0.0, Anion Gap 5L, Glomerular Filtration Rate > 60.0, Blood Urea Nitrogen 10, Creatinine 0.84, Sodium Level 142, Potassium Level 4.1, Chloride Level 108H, Carbon Dioxide Level 29, Calcium Level 9.0, Troponin I < 0.02 CBC/BMP Laboratory Tests 06/13/19 20:07 Red Blood Count 5.12, Mean Corpuscular Volume 90.0, Mean Corpuscular Hemoglobin 29.9, Mean Corpuscular Hemoglobin Concent 33.2, Red Cell Distribution Width 12.6, Neutrophils (%) (Auto) 72.7 H, Lymphocytes (%) (Auto) 16.2 L, Monocytes (%) (Auto) 6.5 H, Eosinophils (%) (Auto) 2.9, Basophils (%) (Auto) 1.0, Neutrophils # (Auto) 8.5 H, Lymphocytes # (Auto) 1.9, Monocytes # (Auto) 0.8, Eosinophils # (Auto) 0.3, Basophils # (Auto) 0.1 06/14/19 09:08 Red Blood Count 5.20, Mean Corpuscular Volume 88.1, Mean Corpuscular Hemoglobin 29.8, Mean Corpuscular Hemoglobin Concent 33.8, Red Cell Distribution Width 12.6, Neutrophils (%) (Auto) 74.2 H, Lymphocytes (%) (Auto) 16.1 L, Monocytes (%) (Auto) 5.9 H, Eosinophils (%) (Auto) 1.9, Basophils (%) (Auto) 1.0, Neutrophils # (Auto) 7.4, Lymphocytes # (Auto) 1.6, Monocytes # (Auto) 0.6, Eosinophils # (Auto) 0.2, Basophils # (Auto) 0.1, Calcium Level 9.0 Microbiology Microbiology 06/13/19 Blood Culture, Received Pending Discharge Medications Scheduled Aspirin (Aspirin EC) 81 Mg Tablet.dr, 81 MG PO DAILY, (Reported) Clopidogrel Bisulfate (Plavix) 75 Mg Tablet, 75 MG PO DAILY, (Reported) Lisinopril (Lisinopril) 10 Mg Tablet, 10 MG PO DAILY, (Reported) Omeprazole (Omeprazole) 20 Mg Capsule.dr, 20 MG PO Q2D, (Reported) Pravastatin Sodium (Pravastatin Sodium) 40 Mg Tablet, 40 MG PO QHS, (Reported) Sitagliptin (Januvia) 50 Mg Tablet, 50 MG PO QHS, (Reported) Scheduled PRN Acetaminophen (Tylenol Arthritis) 650 Mg Tablet.er, 650 MG PO Q8H PRN for PAIN, (Reported) Acetaminophen with Codeine (Tylenol with Codeine #3 Tablet) 1 Each Tablet, 1 TAB PO Q4-6HP PRN for severe arthritis pain Diclofenac Sodium (Voltaren) 100 Gm Gel..gram., 1 DOSE TOP Q8H PRN for PAIN, (Reported) USES ON RIGHT SHOULDER Meloxicam (Mobic) 7.5 Mg Tablet, 7.5 MG PO BID PRN for PAIN, (Reported) WITH FOOD Nitroglycerin (Nitrostat) 0.4 Mg Tab.subl, 0.4 MG SL NITRO PRN for CHEST PAIN, (Reported) Nystatin (Nystatin Powder) 15 Gm Powder, 1 DOSE TOP BID PRN for ITCHING, (Reported) ON RIGHT FOOT FOR ATHLETE'S FOOT Allergies Coded Allergies: No Known Allergies (Verified Allergy, Unknown, 02/19/19) DEDE DIGGS DO Jun 14, 2019 17:11
--- NOTE | 2019-06-15 05:51 | ECGEPIP ---
[facility] - ED Test Date: 2019-06-13 Pat Name: CHANTAL BOWLING Department: Room: [place] [address] Gender: Male [employer]: ct : 1950 Requested By: Haresh Wilson Order Number: [id number] Reading MD: Haresh Moore Measurements Intervals [place] Rate: 49 P: 47 IN: 187 QRS: 83 QRSD: 117 T: 38 QT: 408 QTc: 370 Interpretive Statements SINUS BRADYCARDIA WITH SINUS ARRHYTHMIA INCOMPLETE RIGHT BUNDLE BRANCH BLOCK SIMILAR TO 02/19/19 Electronically Signed on 06-15-2019 5:50:49 EDT by Haresh Moore
--- NOTE | 2019-06-15 07:39 | ECHO ---
DATE OF PROCEDURE: 06/14/2019 REFERRING PHYSICIAN: Dr. Lara Rincon INDICATION: Syncope. HEIGHT: 180 cm. WEIGHT 98 kg. DIMENSIONS: IVS - 1.3 LV - 4.3 LVPW - 1.3 LA - 4.0 Aorta 3.2 IVC 1.4 Mitral E wave velocity - 73, A-wave -62 E prime septal - 6.6 E prime lateral - 8.7 FINDINGS: The study is of fair technical quality. The patient is in sinus rhythm. Left ventricle is normal size and has normal systolic function, I estimate left ventricle ejection fraction (LVEF) around 65-70%. No segmental wall motion abnormalities are noted. Mild left ventricular hypertrophy (LVH) is present. Right ventricle appears to be normal size and systolic function. Left atrium is borderline enlarged. Right atrium appears normal. Aortic mitral tricuspid and pulmonic valves were all well seen and appear normal. No pericardial effusion is noted. Inferior vena cava is normal size. Aortic root is normal. Aortic arch and abdominal aorta were not seen. Doppler interrogation of aortic valve reveals no stenosis or insufficiency. Same applies for mitral, tricuspid and pulmonic valves. Mitral inflow pattern and tissue Doppler imaging of mitral annulus reveals probably normal diastolic function even though tissue Doppler velocities of mitral annulus are mildly reduced. CONCLUSION: 1. Study is of acceptable technical quality. 2. Normal LV size with mild LVH and preserved LV systolic function. Probably normal diastolic function. 3. No significant valvular disease. 4. Normal central venous pressure. 5. Unable to estimate pulmonary artery pressure but no signs to suggest pulmonary hypertension. 6. No findings to explain syncopal event. COMMENT: Subacute bacterial endocarditis (SBE) prophylaxis is not recommended. MTDD
== END 2019-06-14 17:30 | disposition home or self-care (01) | DRG 923 ==
LOC: M ED 19:20 → M ED INP 23:19 → M ED 06-14 00:55 → M ICU 06-14 01:05
PROVIDERS: ADMIT Internal Medicine; ATTEND Family Medicine
DX: T67.6XXA Heat fatigue, transient, initial encounter (principal); R00.1 Bradycardia, unspecified; E11.9 Type 2 diabetes mellitus without complications; G47.33 Obstructive sleep apnea (adult) (pediatric); F32.9 Major depressive disorder, single episode, unspecified; I11.9 Hypertensive heart disease without heart failure; I25.10 Atherosclerotic heart disease of native coronary artery without angina pectoris; Z95.2 Presence of prosthetic heart valve; E78.5 Hyperlipidemia, unspecified; E04.1 Nontoxic single thyroid nodule; Z79.82 Long term (current) use of aspirin; Z79.899 Other long term (current) drug therapy; Z88.8 Allergy status to other drugs, medicaments and biological substances; K21.9 Gastro-esophageal reflux disease without esophagitis; D72.829 Elevated white blood cell count, unspecified; E66.9 Obesity, unspecified; Z68.30 Body mass index [BMI] 30.0-30.9, adult; K22.70 Barrett's esophagus without dysplasia

== ENCOUNTER → 2019-12-20 | Outpatient (REF) | payer MEDICARE ==
[~2019-12-20] MED LIST changes: +ASPI-161 PO; +CLOP75TA2 PO; +MOBI4TAB PO; +NITR4TASL SL; +NYST1POW9 TOP; +PLAV1TAB2 PO; +PRAV40TA2 PO; +RA T500C2 PO; +TYLE650T35 PO; +TYLETAB14 PO; +VOLT1GEL15 TOP
== END ==
LOC: M LAB REF 16:07
PROVIDERS: ATTEND Nurse Practitioner Family
DX: L08.9 Local infection of the skin and subcutaneous tissue, unspecified (principal)

== ENCOUNTER → 2020-02-12 | Outpatient (REF) | payer MEDICARE | LOC: M LAB REF 16:50 | PROVIDERS: ATTEND Nurse Practitioner Family | DX: L08.9 Local infection of the skin and subcutaneous tissue, unspecified (principal) ==

== ENCOUNTER → 2020-05-18 | Outpatient (REF) | payer MEDICARE ==
[~2020-05-18] MED LIST changes: +ACET650T61 PO; -TYLE650T35 PO
== END ==
LOC: M SFHCLERA 12:38
PROVIDERS: ATTEND Physician Assistant
DX: R19.7 Diarrhea, unspecified (principal)

== ENCOUNTER → 2020-05-19 | Outpatient (REF) | payer MEDICARE | LOC: M SFHCLUC 15:50 | PROVIDERS: ATTEND Physician Assistant | DX: R19.7 Diarrhea, unspecified (principal) ==

== ENCOUNTER → 2020-08-12 | Outpatient (REF) | payer MEDICARE | LOC: M LAB REF 17:18 | PROVIDERS: ATTEND Dermatology | DX: L82.1 Other seborrheic keratosis (principal) ==

== ENCOUNTER 2022-09-11 06:48 | Emergency (ER) | payer MEDICARE ==
[~2022-09-11] VITALS: Ht 180.3 cm; Wt 97.6 kg
[~2022-09-11 06:48] MED LIST changes: +CLOP75TA99 PO; +LISI10TA22 PO; -LISI10TA4 PO; +OMEP-173 PO; -OMEP-218 PO; -PLAV1TAB2 PO
[2022-09-11] MEDS ORDERED: GLIP5TAB8 PO (07:05)
[2022-09-11] MEDS ORDERED: GI COCKTAIL 50ML BTL(HYOSCYAMINE/MAALOX/LIDOCAINE VISCOUS)(1:3:1) PO ONE (07:25)
[2022-09-11] MEDS ORDERED: ASPIRIN 81 MG CHEW TABLET PO ONE (07:25)
[2022-09-11 07:50] LABS: BASO # 0.1 10^3/uL (0.0-0.2); BASO % 1.1 % (0.0-1.0); EOS # 0.4 10^3/uL (0.0-0.5); EOS % 3.7 % (0.0-3.0); HEMATOCRIT 50.4 % (42.0-52.0); HEMOGLOBIN 16.3 g/dl (13.5-17.5); LYMPH # 1.9 10^3/uL (1.5-5.0); LYMPH % 17.9 % (24.0-44.0); MEAN CORPUSCULAR HEMOGLOBIN 29.3 pg (27.0-33.0); MEAN CORPUSCULAR HGB CONC 32.3 g/dl (32.0-36.5); MEAN CORPUSCULAR VOLUME 90.6 fl (80.0-96.0); MONO # 0.8 10^3/uL (0.0-0.8); MONO % 7.6 % (2.0-8.0); NEUTROPHILS # 7.2 10^3/uL (1.5-8.5); NEUTROPHILS % 68.8 % (36.0-66.0); PLATELET COUNT, AUTOMATED 285 10^3/uL (150-450); RED BLOOD COUNT 5.56 10^6/uL (4.30-6.10); WHITE BLOOD COUNT 10.4 10^3/uL (4.0-10.0)
[2022-09-11] MEDS ORDERED: ISOVUE-370 76% 100ML VIAL As Ordered ONE (07:56)
[2022-09-11 08:00] LABS: INR 0.98; PROTHROMBIN TIME 13.2 SECONDS (12.5-14.5)
[2022-09-11 08:25] LABS: CK-MB VALUE MASS 1.1 NG/ML (<3.6); MB/CK RELATIVE INDEX 1.16 (< OR =4)
[2022-09-11 08:27] LABS: RSV AMPLIFICATION NEGATIVE (NEGATIVE)
[2022-09-11 08:32] LABS: ALBUMIN 3.5 GM/DL (3.2-5.2); ALT/SGPT 56 U/L (12-78); BILIRUBIN,DIRECT 0.1 MG/DL (0.0-0.2); BILIRUBIN,TOTAL 0.3 MG/DL (0.2-1.0); BLOOD UREA NITROGEN 22 MG/DL (7-18); CALCIUM LEVEL 9.3 MG/DL (8.8-10.2); CARBON DIOXIDE LEVEL 26 MEQ/L (21-32); CHLORIDE LEVEL 105 MEQ/L (98-107); CREATININE FOR GFR 1.03 MG/DL (0.70-1.30); FREE T4 0.98 NG/DL (0.76-1.46); GLOMERULAR FILTRATION RATE > 60.0 (>42); GLUCOSE, FASTING 122 MG/DL (70-100); LIPASE 151 U/L (73-393); NT-PRO BNP 63 PG/ML (<125); POTASSIUM SERUM 4.4 MEQ/L (3.5-5.1); SODIUM LEVEL 136 MEQ/L (136-145); TOTAL PROTEIN 7.3 GM/DL (6.4-8.2)
[2022-09-11 09:26] LABS: CK-MB VALUE MASS < 1.0 NG/ML (<3.6); CPK CREATINE PHOSPHOKINASE 58 U/L (39-308); MB/CK RELATIVE INDEX 1.72 (< OR =4)
[2022-09-11 11:38] LABS: CK-MB VALUE MASS 1.1 NG/ML (<3.6); MB/CK RELATIVE INDEX 1.64 (< OR =4)
[2022-09-11 12:45] VITALS: BP 125/71
== END 2022-09-11 13:04 | disposition home or self-care (01) ==
LOC: M ED 06:48
DX: R07.9 Chest pain, unspecified (principal); E04.1 Nontoxic single thyroid nodule; I25.10 Atherosclerotic heart disease of native coronary artery without angina pectoris; E11.9 Type 2 diabetes mellitus without complications; I10 Essential (primary) hypertension; E78.5 Hyperlipidemia, unspecified; Z95.5 Presence of coronary angioplasty implant and graft; Z87.891 Personal history of nicotine dependence
CPT/HCPCS: 70450; 71045; 71275; 74177; 80047; 80048; 80076; 82550; 82553; 83690; 83880; 84439; 84443; 84484; 85025; 85610; 85730; 87631; 93005; 93041; 94760; 99285; Q9967